=== PATIENT | female | born 1990 | race Hispanic/Latino ===

== ENCOUNTER 2016-06-14 22:02 | Outpatient (CLI) | payer OTHER ==
[~2016-06-14] VITALS: Ht 165.1 cm; Wt 75.0 kg
[2016-06-14 22:11] VITALS: BP 118/72
[2016-06-14] MEDS ORDERED: AMPICILLIN SOD/SULBACTAM SOD 3 GM in D5W MINI-BAG PLUS 100 ML IV ONE (23:00)
[2016-06-14] MEDS ORDERED: LR 1,000 ML IV ONE (23:00)
[2016-06-14] MEDS: LR 1,000 ML IV SCH (23:05)
[2016-06-14 23:13] LABS: MEAN CORPUSCULAR HEMOGLOBIN 31.3 pg (27.0-33.0); MEAN CORPUSCULAR HGB CONC 34.4 g/dl (32.0-36.5); MEAN CORPUSCULAR VOLUME 91.1 fl (80.0-96.0); RED CELL DISTRIBUTION WIDTH 13.9 % (11.5-14.5); WHITE BLOOD COUNT 7.6 K/mm3 (4.0-10.0)
[2016-06-15 00:11] VITALS: BP 118/68
--- NOTE | 2016-06-15 00:13 | HPE ---
DATE OF ADMISSION: 06/14/2016 This lady is a 26-year-old 3, para 1, abortus 1, last menstrual period (LMP) 01/09/2016, estimated date of confinement (EDC) 10/15/2016, at 22 and 1 weeks' of gestation with history of hematuria and 3 days of burning on void, with right flank pain. She is negative for stones. Risk factors: She has abdominoplasty and has chronic pain because of enlarging uterus. PAST HISTORY: 1. 2011, 39 weeks and 6 days, induction of labor, etiology unknown, spontaneous vaginal delivery, female 7 pounds. 2. 2014 at 12 weeks, spontaneous with dilation and curettage (D and C). LABORATORIES: Show O positive, HIV negative, hepatitis negative, RPR negative, rubella immune, varicella by history. Pap showed low-grade squamous intraepithelial lesion (LGSIL). Urine was negative. Gonorrhea and chlamydia are negative. Urine is 1.001, 3+ blood, 1+ bacteria. Temperature 100 degrees Fahrenheit, blood pressure 118/72, respirations 18, pulse 89. She does not appear in distress. However, she does have some flank pain radiating around to the front. She does look pale and she does have a fever. She is normocephalic, atraumatic. Neck: Full range of motion. Pupils equal and reactive to light. Thyroid is normal. No jugular venous distention (JVD), bruits. Lungs are clear bilaterally to bases. No wheezes or rhonchi. She does have costovertebral angle (CVA) tenderness on the right side. Appropriate fundal height. Four quadrant bowel sounds are noted. No vaginal bleeding, but she is bleeding from her bladder. GYNECOLOGICAL HISTORY: She does have LGSIL. PAST MEDICAL HISTORY: None. PAST SURGICAL HISTORY: Abdominoplasty. FAMILY HISTORY: Noncontributory. No alcohol. No tobacco. 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 ALLERGIES: She has no allergies. PLAN OF MANAGEMENT: To hydrate her, intravenous (IV) antibiotics and give her antibiotics to go home, treat the fever and counseled regarding increasing fluids. The patient is presently getting an IV and antibiotics.
[2016-06-15] MEDS: LR 1,000 ML IV SCH (00:48)
[2016-06-15 06:01] VITALS: BP 108/62
--- NOTE | 2016-06-15 08:38 | DSES ---
DATE OF ADMISSION: 06/14/2016 DATE OF DISCHARGE: This lady is a 26-year-old 3, para 1 who came in at 22 weeks 1 day with hematuria, fever and dysuria. She had gross hematuria noted, elevated temperature of 100.0. She was given a loading dose of antibiotics and a prescription for Bactrim to take at home. On discharge, we discussed the medication through an sole blacker, which is her and to take her antibiotics one pill twice a day with moderate amount of fluids. On discharge, her blood pressure is 108/62, respirations 18, pulse 82, temperature 98.1. Her urine was clear. She no longer had any dysuria and no longer had any hematuria. Her urine was 1001 with gross blood +3 and bacteria +2. She is anemic in that her hemoglobin is 10.4, hematocrit 30.1 and platelets are 179. In summary, we have a 22-week 1-day gestation with gross hematuria, dysuria discharged improved to followup in the office at her regular visit.
== END 2016-06-15 07:14 | disposition home or self-care (01) ==
LOC: M LDO 22:02 → M OBS 06-15 00:53 → M LDO 06-15 07:14
PROVIDERS: ATTEND Obstetrics & Gynecology
DX: O23.42 Unspecified infection of urinary tract in pregnancy, second trimester (principal); Z3A.22 22 weeks gestation of pregnancy

== ENCOUNTER 2016-07-31 18:08 | Outpatient (CLI) | payer OTHER ==
[~2016-07-31] VITALS: Ht 160 cm; Wt 85.0 kg
[2016-07-31 18:29] VITALS: BP 119/60
--- NOTE | 2016-07-31 20:19 | IPNPDOC ---
Text Note Date of Service The patient was seen on 07/31/16. NOTE Tomeka is a 26yo with SIUP at approximately 29wk who presents today for lower abdominal pain. PShx significant for abdominoplasty. She states that there is a line of pain across her lower abdomen just under her abdominoplasty scar that hurts. No radiation. She feels her abdomen is stretched tight, endorses sensation of shortness of breath when she is trying to sleep. Feels good movement, no ctx, no loss of fluid, no vaginal bleeding. Vitals wnl, afebrile General: WDWN gravid female in NAD, resting in bed Abdomen: soft, ND, mild tenderness of abdomen along abdominoplasty scar line but no rebound/guarding, gravid NST: reassuring for gestational age with moderate variability, accels, no decels [place]: no ctx Assessment: Tomeka is a 26yo with SIUP at approximately 29wk with abdominal pain related to stretching of abdominoplasty scar tissue. Vitals wnl, exam benign. status reassuring. Plan: -I saw Tomeka early in her and we discussed then that it is not generally recommended to get after an abdominoplasty because there can be significant discomfort related to stretching of scar tissue during . She states she was told by her plastic surgeon (who made $10k with her combination of abdominoplasty and breast augmentation) that it would be fine to get after her surgeries and she would have no problems. -I re-discussed with Tomeka that this pain is likely just the beginning of the stretching pain she is going to experience. I reassured her that we can treat her pain now with Tylenol and Benadryl. Should her pain become worse over the weeks before delivery, we would need to discuss using a narcotic like Percocet since there are risks for her fetus. -She is very worried about having to carry her potentially to 41wk if she is in significant discomfort. I told her we will need to continue to re- evaluate week by week, but if her pain is intolerable, it would represent an indication for earlier term delivery. -Advised pt she may need to be seen in clinic every 2 weeks rather than every 4 if she is having ongoing pain. She can call the clinic for earlier appointment as needed. -Return precautions discussed Dr. Jones Mcmahon MD [place] VS,Jacqueline, I+O VSJacqueline, I+O Vital Signs Date Time Temp Pulse Resp B/P (MAP) Pulse Ox O2 Delivery O2 Flow Rate FiO2 07/31/16 18:29 98.9 84 18 119/60 (79) JONES MCMAHON MD Jul 31, 2016 20:19
== END 2016-07-31 20:05 | disposition home or self-care (01) ==
LOC: M LDO 18:08
PROVIDERS: ATTEND Advanced Practice Midwife
DX: O99.713 Diseases of the skin and subcutaneous tissue complicating pregnancy, third trimester (principal); L90.5 Scar conditions and fibrosis of skin; Z3A.29 29 weeks gestation of pregnancy

== ENCOUNTER 2016-10-06 06:55 | Inpatient (IN) | payer OTHER ==
[~2016-10-06] VITALS: Ht 160 cm; Wt 94.0 kg
[2016-10-06] VITALS (38 sets, daily range): BP systolic 79–134; BP diastolic 51–93
[2016-10-06] MEDS ORDERED: miSOPROStol 50 MCG 1/2 TAB (S0191) PV ONE (08:30)
[2016-10-06 08:46] LABS: MEAN CORPUSCULAR HEMOGLOBIN 27.3 pg (27.0-33.0); MEAN CORPUSCULAR HGB CONC 32.1 g/dl (32.0-36.5); MEAN CORPUSCULAR VOLUME 85.1 fl (80.0-96.0); RED CELL DISTRIBUTION WIDTH 16.4 % (11.5-14.5); WHITE BLOOD COUNT 6.5 K/mm3 (4.0-10.0)
[2016-10-06] MEDS ORDERED: OXYTOCIN DRIP 30 UNITS in APPROPRIATE DILUENT 1 EA IV SCH (13:00)
--- NOTE | 2016-10-06 16:51 | HPE ---
DATE OF ADMISSION: 10/06/2016 This lady is a 26-year-old 3, para 1, abortio 1, last menstrual period (LMP) 01/09/2016, estimated date of confinement (EDC) 10/15/2016 at 40 weeks of gestation for induction of labor. She has had an abdominoplasty and has had significant abdominal pain since 20 weeks of gestation. PAST HISTORY: In 2011 at 39 weeks and 2 days, spontaneous vaginal delivery, female, 7 pounds, 0 ounces, had polyhydramnios. In 2014, a dilation and curettage for a 12-week gestation. Her risk factors is her continued abdominal pain secondary to her abdominoplasty and lactose intolerance. LABORATORY DATA: Show O+, HIV negative, hepatitis negative, RPR negative, rubella immune. Varicella by history. Pap LGSIL. Urine negative. Gonorrhea and Chlamydia are negative. One-hour glucose 71. GBS negative. PHYSICAL EXAMINATION: On examination, no distress. Symphysis fundus height is 40, vertex. heart is present. Category 1 strip. She has abdominal scars periumbilically and low transverse, very hard rigid skin, difficult to palpate, Pelvic examination is soft, 67% effaced, posterior, 1-2 cm, -3 station. No vaginal bleeding or loss. Her blood pressure is 130/67, respirations 18, pulse 90, temperature is 98.4. Urine 1.015, pH 7, negative, negative, negative. Hemoglobin 10.1, hematocrit 31.3, platelets 186. We discussed induction of labor. Risks and benefits including hemorrhage, infection, increased risk of section, increased risk of intensive care unit (NICU) and increased risk of operative delivery. The patient and expressed understanding of the risks and benefits and expressed wanting to continue with the plan. Our plan of management is to use Cytotec, followed by possibly catheter or IV Pitocin, planned epidural as needed, and hydration as required.
[2016-10-06] MEDS ORDERED: LR 1,000 ML IV SCH (17:30)
[2016-10-06] MEDS ORDERED: diphenhydrAMINE INJ 50MG/ML VIAL (J1200) IV PRN (22:20)
[2016-10-06] MEDS ORDERED: ONDANSETRON 4MG/2ML VIAL (J2405) IV PRN (22:20)
[2016-10-06] MEDS ORDERED: NALOXONE INJ 0.4 MG/1 ML VIAL (J2310) IV PRN (22:20)
[2016-10-06] MEDS ORDERED: EPIDURAL COMMENT XX SCH (22:20)
[2016-10-06] MEDS ORDERED: LACTATED RINGER'S 1000 ML IV PRN (22:20)
[2016-10-06] MEDS ORDERED: EPIDURAL/PCA KEYS XX PRN (22:20)
[2016-10-06] MEDS ORDERED: FENTANYL/ROPIVACAINE/NACL BAG 200 ML EPIDURAL SCH (22:20)
[2016-10-06] MEDS ORDERED: REFRIGERATOR IV KEYS XX PRN (22:20)
[2016-10-06] MEDS ORDERED: FENTANYL 2MCG/ML ROPIVACAINE 0.2% IN 0.9% NACL 200ML IVBAG As Ordered ONE (22:21)
[2016-10-06] MEDS ORDERED: ePHEDrine SULFATE 25 MG/5 ML(5MG/ML) SYRINGE As Ordered ONE (23:11)
[2016-10-06] MEDS: ePHEDrine SULFATE 25 MG/5 ML(5MG/ML) SYRINGE IV PRN (23:12)
[2016-10-07] VITALS (31 sets, daily range): BP systolic 95–139; BP diastolic 50–76
[2016-10-07 05:18] LABS: CORD GAS ABE A -5.7; CORD GAS ABE V -1.8; CORD GAS HCO3 A 24.2 MEQ/L; CORD GAS HCO3 V 22.9 MEQ/L; CORD GAS O2 SAT A 32.7 %; CORD GAS O2 SAT V 87.7 %; CORD GAS PCO2 A 66.4 mmHg; CORD GAS PCO2 V 38.9 mmHg; CORD GAS PH A 7.179 UNITS; CORD GAS PH V 7.387 UNITS; CORD GAS PO2 A 18.6 mmHg; CORD GAS PO2 V 43.6 mmHg; CORD GAS SBC A 18.3 MEQ/L; CORD GAS SBC V 22.7 MEQ/L; CORD GAS TCO2 A 26.2 MEQ/L; CORD GAS TCO2 V 24.1 MEQ/L
[2016-10-07] MEDS ORDERED: MOM 30ML SUSPENSION UDC PO PRN (05:30)
[2016-10-07] MEDS ORDERED: DIBUCAINE 1% OINTMENT 30GM TOP PRN (05:30)
[2016-10-07] MEDS ORDERED: DOCUSATE SODIUM 100 MG CAP PO PRN (05:30)
[2016-10-07] MEDS ORDERED: ANUSOL HC CREAM 30GM TOP PRN (05:30)
[2016-10-07] MEDS ORDERED: ACETAMINOPHEN 500 MG TAB PO PRN (05:30)
[2016-10-07] MEDS ORDERED: RHOGAM 300 MCG (1500 IU) INJ (J2790) IM SCH (05:30)
[2016-10-07] MEDS ORDERED: METHYLERGONOVINE MALEATE 0.2 MG TAB PO PRN (05:30)
[2016-10-07] MEDS ORDERED: MEASLES,MUMPS,RUBELLA VACCINE INJ (MMR-II) (90707) SC SCH (05:30)
[2016-10-07] MEDS ORDERED: OXYTOCIN INJ 10 UNITS/ML VIAL (J2590) IV ONE (07:30)
[2016-10-07] MEDS: PRENATAL VITAMINS CHEWABLE TABLET PO SCH (08:12)
[2016-10-07] MEDS: IBUPROFEN 800 MG TAB PO PRN ×2 (08:12→15:57)
--- NOTE | 2016-10-07 09:44 | DN ---
DATE OF DELIVERY: 10/07/2016 A 26-year-old 3, para 1, admitted for induction of labor with polyhydramnios and abdominal pain secondary to interval surgery. She had Cytotec. She had misoprostol times one dose augmented with Pitocin, an artificial rupture of membranes (AROM) after an epidural, had a precipitous spontaneous vaginal delivery of a livebirth male infant, 3264 grams, 6 pounds 3 ounces. scores 9 and 9 at 1 and 5 minutes, respectfully. Cord around neck times one. Arterial pH performed. Placenta delivered spontaneously thereafter. Three-vessel cord, membranes, and tissues intact. She had a first-degree tear which was oversewn in the usual fashion on the right outer labia. The uterus contracted down well under control Pitocin. Bimanual examination: Had a clot in the cervix, which was removed. Uterus is then firm and hard. The patient and the baby tolerating the procedure well. Examination of the vagina, the rectum, the sphincter. Everything else was intact.
[2016-10-08 05:30] VITALS: BP 121/70
[2016-10-08] MEDS: IBUPROFEN 800 MG TAB PO PRN (06:18)
[2016-10-08 07:48] LABS: MEAN CORPUSCULAR HEMOGLOBIN 27.8 pg (27.0-33.0); MEAN CORPUSCULAR HGB CONC 32.9 g/dl (32.0-36.5); MEAN CORPUSCULAR VOLUME 84.8 fl (80.0-96.0); RED CELL DISTRIBUTION WIDTH 16.5 % (11.5-14.5); WHITE BLOOD COUNT 8.4 K/mm3 (4.0-10.0)
[2016-10-08] MEDS: PRENATAL VITAMINS CHEWABLE TABLET PO SCH (08:44)
[2016-10-08] MEDS ORDERED: MOTR200T44 PO (09:43)
[2016-10-08] MEDS ORDERED: COLA100C5 PO (09:43)
[2016-10-08] MEDS ORDERED: ANUS2.5C2 PR (09:43)
[2016-10-08] MEDS ORDERED: PRENTAB55 PO (09:43)
[2016-10-08] MEDS ORDERED: DIBU10OI TOP (09:43)
[2016-10-08] MEDS ORDERED: MILKSUS PO (09:43)
[2016-10-08] MEDS ORDERED: TYLE325T5 PO (09:43)
== END 2016-10-08 10:40 | disposition home or self-care (01) | DRG 775 ==
LOC: M LDI 06:55 → M OBS 10-07 08:25
PROVIDERS: ADMIT Obstetrics & Gynecology; ATTEND Obstetrics & Gynecology
PROC: 3E0DXGC Introduction of Other Therapeutic Substance into Mouth and Pharynx, External Approach (ICD-10-PCS; 2016-10-06)
PROC: 10E0XZZ Delivery of Products of Conception, External Approach (ICD-10-PCS; principal; 2016-10-07)
PROC: 10907ZC Drainage of Amniotic Fluid, Therapeutic from Products of Conception, Via Natural or Artificial Opening (ICD-10-PCS; 2016-10-07)
DX: O40.3XX0 Polyhydramnios, third trimester, not applicable or unspecified (principal); Z37.0 Single live birth; Z3A.40 40 weeks gestation of pregnancy; O69.81X0 Labor and delivery complicated by cord around neck, without compression, not applicable or unspecified